=== PATIENT | male | born 1975 | race African-American/Black ===

== ENCOUNTER 2021-06-08 14:46 | Outpatient (REF) | payer MEDICAID, OTHER, SELFPAY ==
--- NOTE | ~2021-06-08 | XR_ITS ---
EXAMINATION: XR SHOULDER, LEFT CLINICAL INFORMATION: Left shoulder pain COMPARISON: None TECHNIQUE: AP external rotation, Grashey, scapular Y, and axillary views of the left shoulder. FINDINGS: Visualized portions of the proximal left humerus demonstrate no fracture. Approximately 3 cm sclerotic focus within the proximal left humerus is nonspecific but possibly claim service representative of a bone infarct or [place]. Humeral head demonstrates good articulation with the glenoid fossa. There are only minimal hypertrophic changes of the left acromioclavicular joint. Left-sided ribs and lung parenchyma are unremarkable. XR/XR shoulder LT min 2V IMPRESSION: Minimal degenerative changes of left shoulder.
== END 2021-06-08 14:47 | disposition home or self-care (01) ==
LOC: HO.XRAY 14:46
PROVIDERS: PCP Internal Medicine; Visit Provider General Practice
DX: M25.512 Pain in left shoulder (principal)
CPT/HCPCS: 73030